=== PATIENT | male | born 1970 | race Hispanic/Latino ===

== ENCOUNTER → 2019-03-23 | Outpatient (CLI) | payer MEDICAID, OTHER ==
[~2019-03-23] MED LIST: CARA1TAB6 PO; CREO12CA PO; ENDO5TAB PO; ZOFR4TAB16 PO
[2019-03-23 10:16] LABS: BASO % 0.6 % (0.0-1.0); EOS # 0.2 10^3/uL (0.0-0.5); EOS % 2.6 % (0.0-3.0); HEMATOCRIT 41.5 % (42.0-52.0); LYMPH # 1.5 10^3/uL (1.5-5.0); LYMPH % 22.2 % (24.0-44.0); MEAN CORPUSCULAR HEMOGLOBIN 29.2 pg (27.0-33.0); MEAN CORPUSCULAR HGB CONC 33.7 g/dl (32.0-36.5); MEAN CORPUSCULAR VOLUME 86.6 fl (80.0-96.0); MONO # 0.6 10^3/uL (0.0-0.8); NEUTROPHILS # 4.5 10^3/uL (1.5-8.5); PLATELET COUNT, AUTOMATED 268 10^3/uL (150-450); RED BLOOD COUNT 4.79 10^6/uL (4.30-6.10); WHITE BLOOD COUNT 6.9 10^3/uL (4.0-10.0)
[2019-03-23 10:20] LABS: APPEARANCE, URINE CLEAR (CLEAR); BACTERIA, URINE AUTO NEGATIVE (NEGATIVE); BILIRUBIN, URINE AUTO NEGATIVE (NEGATIVE); BLOOD, URINE BLOOD NEGATIVE (NEGATIVE); COLOR, URINE YELLOW (YELLOW); GLUCOSE, URINE (UA) AUTO NEGATIVE (NEGATIVE); KETONE, URINE AUTO NEGATIVE (NEGATIVE); LEUKOCYTE ESTERASE, URINE AUTO NEGATIVE (NEGATIVE); MUCUS, URINE SMALL (NEGATIVE); NITRITE, URINE AUTO NEGATIVE (NEGATIVE); PROTEIN, URINE AUTO NEGATIVE (NEGATIVE); RBC, URINE AUTO 1 /HPF (0-3); SPECIFIC GRAVITY URINE AUTO 1.021 (1.002-1.035); SQUAMOUS EPITHELIAL CELL UR AU 0 /HPF (0-6); UROBILINOGEN, URINE AUTO 0.2 mg/dL (0.0-2.0); WBC, URINE AUTO 1 /HPF (0-3)
[2019-03-23 11:26] LABS: ALBUMIN 3.8 GM/DL (3.2-5.2); ALT/SGPT 20 U/L (12-78); BILIRUBIN,TOTAL 0.6 MG/DL (0.2-1.0); BLOOD UREA NITROGEN 12 MG/DL (7-18); CALCIUM LEVEL 8.9 MG/DL (8.5-10.1); CARBON DIOXIDE LEVEL 21 MEQ/L (21-32); CHLORIDE LEVEL 110 MEQ/L (98-107); CREATININE FOR GFR 1.02 MG/DL (0.70-1.30); GLOMERULAR FILTRATION RATE > 60.0 (>60); GLUCOSE, FASTING 92 MG/DL (70-100); SODIUM LEVEL 138 MEQ/L (136-145); TOTAL PROTEIN 7.4 GM/DL (6.4-8.2)
[2019-03-23 11:27] LABS: POTASSIUM SERUM 6.4 MEQ/L (3.5-5.1)
[2019-03-24 09:15] LABS: HEPATITIS B SURFACE ANTIGEN NEGATIVE (NEGATIVE)
[2019-03-24 09:43] LABS: HEPATITIS B CORE ANTIBODY IGM NEGATIVE (NEGATIVE)
[2019-03-24 09:45] LABS: HEPATITIS A ANTIBODY IGM NEGATIVE (NEGATIVE)
== END ==
LOC: M LAB 09:31
PROVIDERS: ATTEND Physician Assistant Medical
DX: Z02.2 Encounter for examination for admission to residential institution (principal)

== ENCOUNTER → 2019-03-24 | Outpatient (CLI) | payer OTHER, MEDICAID | LOC: M LAB 17:52 | PROVIDERS: ATTEND Physician Assistant Medical | DX: Z02.2 Encounter for examination for admission to residential institution (principal) ==

== ENCOUNTER 2019-03-28 12:45 | Emergency (ER) | payer OTHER, MEDICAID ==
[~2019-03-28] VITALS: Ht 165.1 cm; Wt 63.0 kg
[2019-03-28] MEDS ORDERED: CARA1TAB6 PO (12:59)
[2019-03-28] MEDS ORDERED: CREO12CA PO (12:59)
[2019-03-28] MEDS ORDERED: ENDO5TAB PO (12:59)
[2019-03-28] MEDS ORDERED: ZOFR4TAB16 PO (12:59)
[2019-03-28] MEDS ORDERED: MORPHINE 2 MG/ML 1ML SYRINGE (J2270) IV ONE (14:00)
[2019-03-28] MEDS ORDERED: ONDANSETRON 4MG/2ML VIAL (J2405) IV ONE (14:00)
[2019-03-28] MEDS ORDERED: ONDANSETRON 4 MG ORAL DISINTEGRATING TAB (Q0162 PER 1MG) PO ONE (14:30)
[2019-03-28] MEDS ORDERED: MORPHINE 2 MG/ML 1ML SYRINGE (J2270) IM ONE ×2 (14:30→16:15)
[2019-03-28 15:12] LABS: HEMATOCRIT 47.2 % (42.0-52.0); HEMOGLOBIN 15.1 g/dl (13.5-17.5); MEAN CORPUSCULAR HEMOGLOBIN 28.8 pg (27.0-33.0); MEAN CORPUSCULAR VOLUME 90.1 fl (80.0-96.0); PLATELET COUNT, AUTOMATED 269 10^3/uL (150-450); RED BLOOD COUNT 5.24 10^6/uL (4.30-6.10); WHITE BLOOD COUNT 11.6 10^3/uL (4.0-10.0)
[2019-03-28 15:39] LABS: ALBUMIN 4.3 GM/DL (3.2-5.2); ALT/SGPT 26 U/L (12-78); BILIRUBIN,TOTAL 0.4 MG/DL (0.2-1.0); BLOOD UREA NITROGEN 7 MG/DL (7-18); CALCIUM LEVEL 9.3 MG/DL (8.5-10.1); CARBON DIOXIDE LEVEL 26 MEQ/L (21-32); CHLORIDE LEVEL 107 MEQ/L (98-107); CREATININE FOR GFR 0.97 MG/DL (0.70-1.30); GLOMERULAR FILTRATION RATE > 60.0 (>60); GLUCOSE, FASTING 77 MG/DL (70-100); POTASSIUM SERUM 4.1 MEQ/L (3.5-5.1); SODIUM LEVEL 142 MEQ/L (136-145)
[2019-03-28 15:54] VITALS: BP 114/68
--- NOTE | 2019-03-28 18:50 | ED PDOC ---
Post-Departure Follow-Up I spoke with Dr. Chilango Valencia at 1415 from [facility]. He performed banks rgery on this patient Friday. I was advised to leave the plaster for the splint in place. Lightly remove the gauze to look at the 3 incision sites. All 3 sites were visualized. No signs on exam of infection such as redness, warmth, or drainage. Patient afebrile during visit. He has a follow up appointment scheduled for this Friday JORGE CARCAMO PA-C Mar 28, 2019 18:50
== END 2019-03-28 17:00 | disposition home or self-care (01) ==
LOC: M ED 12:45 → EDBD 12:45 → M ED 17:00
DX: G89.18 Other acute postprocedural pain (principal); M79.631 Pain in right forearm; F33.9 Major depressive disorder, recurrent, unspecified; F41.9 Anxiety disorder, unspecified; K27.9 Peptic ulcer, site unspecified, unspecified as acute or chronic, without hemorrhage or perforation; Z88.0 Allergy status to penicillin; Z88.8 Allergy status to other drugs, medicaments and biological substances; F17.210 Nicotine dependence, cigarettes, uncomplicated
CPT/HCPCS: 36415; 80053; 85027; 96372; 99284; J2270; Q0162

== ENCOUNTER 2019-03-30 23:18 | Emergency (ER) | payer MEDICAID, OTHER ==
[~2019-03-30] VITALS: Ht 165.1 cm; Wt 63.6 kg
[2019-03-31] MEDS ORDERED: MORPHINE 4 MG/ML 1ML VIAL/SYRINGE (J2270) IV ONE
[2019-03-31 00:23] LABS: BASO % 0.5 % (0.0-1.0); EOS # 0.2 10^3/uL (0.0-0.5); EOS % 2.7 % (0.0-3.0); HEMATOCRIT 42.3 % (42.0-52.0); HEMOGLOBIN 13.9 g/dl (13.5-17.5); LYMPH # 2.5 10^3/uL (1.5-5.0); LYMPH % 29.5 % (24.0-44.0); MEAN CORPUSCULAR HEMOGLOBIN 28.5 pg (27.0-33.0); MEAN CORPUSCULAR HGB CONC 32.9 g/dl (32.0-36.5); MEAN CORPUSCULAR VOLUME 86.7 fl (80.0-96.0); MONO # 0.5 10^3/uL (0.0-0.8); NEUTROPHILS # 5.1 10^3/uL (1.5-8.5); NEUTROPHILS % 60.6 % (36.0-66.0); PLATELET COUNT, AUTOMATED 311 10^3/uL (150-450); RED BLOOD COUNT 4.88 10^6/uL (4.30-6.10); WHITE BLOOD COUNT 8.5 10^3/uL (4.0-10.0)
[2019-03-31] MEDS ORDERED: MORPHINE 10 MG/ML 1ML VIAL (J2270) IM ONE (00:30)
[2019-03-31 00:44] LABS: BLOOD UREA NITROGEN 11 MG/DL (7-18); CALCIUM LEVEL 8.7 MG/DL (8.5-10.1); CARBON DIOXIDE LEVEL 28 MEQ/L (21-32); CHLORIDE LEVEL 108 MEQ/L (98-107); CREATININE FOR GFR 0.94 MG/DL (0.70-1.30); GLOMERULAR FILTRATION RATE > 60.0 (>60); GLUCOSE, FASTING 105 MG/DL (70-100); POTASSIUM SERUM 4.2 MEQ/L (3.5-5.1); SODIUM LEVEL 142 MEQ/L (136-145)
--- NOTE | 2019-03-31 01:21 | REPVR ---
PROCEDURE INFORMATION: Exam: US Duplex Right Upper Extremity Veins, Limited Exam date and time: 03/30/2019 12:56 AM Clinical history: 49 years old, male; Pain; Arn, upper and arm and hand; Right; Prior surgery; Surgery date: 3-7 days post-operative; Surgery type: Tendon repair; Additional info: R arm pain R/O dvt TECHNIQUE: Imaging protocol: Real-time Duplex ultrasound of the Right Upper Extremity with 2-D baldwin scale, color Doppler flow and spectral waveform analysis with image documentation. Limited exam focused on the right upper extremity veins. COMPARISON: No relevant prior studies available. FINDINGS: Right deep veins: Unremarkable. Axillary and brachial veins are patent throughout without thrombus. Normal Doppler waveforms. Normal compressibility and/or augmentation response. Visualized internal jugular and subclavian veins are patent. Right superficial veins: Unremarkable. Visualized cephalic and basilic veins are patent without thrombus. Soft tissues: Subcutaneous edema. IMPRESSION: No sonographic evidence of deep vein thrombosis. Electronically signed by: Aureliano Sanchez On 03/31/2019 01:21:05 AM
--- NOTE | 2019-03-31 01:26 | REPVR ---
PROCEDURE INFORMATION: Exam: XR Right Hand Exam date and time: 03/31/2019 12:39 AM Clinical history: 49 years old, male; Pain; Hand; Right; Prior surgery; Surgery date: 3-7 days post-operative; Additional info: Hand pain TECHNIQUE: Imaging protocol: XR Right hand. Views: 3 or more views. COMPARISON: No relevant prior studies available. 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 No radiographic evidence of acute fracture or dislocation. Alignment anatomic. Mild degenerative changes. No erosive or destructive changes. No lytic or blastic lesion. Soft tissues: Mild soft tissue swelling. IMPRESSION: Soft tissue swelling without acute osseous abnormality. Electronically signed by: Aureliano Sanchez On 03/31/2019 01:26:07 AM
--- NOTE | 2019-03-31 01:32 | REPVR ---
PROCEDURE INFORMATION: Exam: XR Right Forearm Exam date and time: 03/31/2019 12:39 AM Clinical history: 49 years old, male; Pain; Lower or forearm; Right; Prior surgery; Surgery date: 3-7 days post-operative; Additional info: Forearm pain TECHNIQUE: Imaging protocol: XR Right forearm. Views: 2 views. COMPARISON: No relevant prior studies available. FINDINGS: Bones/joints: No radiographic evidence of acute fracture or dislocation. Alignment is anatomic. Joint spaces preserved. No erosive or destructive changes. No lytic or blastic lesion. Soft tissues: Mild soft tissue swelling about the distal forearm and wrist. IMPRESSION: No acute osseous abnormality. Electronically signed by: Aureliano Sanchez On 03/31/2019 01:32:48 AM
[2019-03-31] MEDS ORDERED: PERCOCET 5MG/325MG TAB PO ONE (02:15)
[2019-03-31 02:27] VITALS: BP 136/78
== END 2019-03-31 02:50 | disposition home or self-care (01) ==
LOC: M ED 23:18
DX: G89.18 Other acute postprocedural pain (principal); K21.9 Gastro-esophageal reflux disease without esophagitis; F41.9 Anxiety disorder, unspecified; F32.9 Major depressive disorder, single episode, unspecified; K85.90 Acute pancreatitis without necrosis or infection, unspecified; Z90.49 Acquired absence of other specified parts of digestive tract; F17.210 Nicotine dependence, cigarettes, uncomplicated; Z88.0 Allergy status to penicillin; Z88.8 Allergy status to other drugs, medicaments and biological substances; Z79.899 Other long term (current) drug therapy
CPT/HCPCS: 36415; 73090; 73130; 80048; 85025; 93971; 96372; 99284; J2270

== ENCOUNTER → 2019-06-29 | Outpatient (RCR) | payer OTHER | END | disposition home or self-care (01) | LOC: M OT 06-01 10:49 | DX: Z47.89 Encounter for other orthopedic aftercare (principal) ==

== ENCOUNTER → 2019-09-28 | Outpatient (CLI) | payer OTHER ==
--- NOTE | 2019-09-28 14:26 | REP ---
DIGITAL BILATERAL DIAGNOSTIC MAMMOGRAPHY WITH CAD, 3D TOMOGRAPHY, AND FOCUSED BILATERAL BREAST SONOGRAPHY: HISTORY: Gynecomastia. Bilateral breast lumps. Very painful. Left greater than right. MAMMOGRAPHIC FINDINGS: Craniocaudal and mediolateral oblique views of each breast were obtained. These demonstrate a gynecomastia pattern with moderate fibroglandular tissue density dispersed in both breasts, left more advanced than right. There is no evidence of focal breast mass, architectural distortion, microcalcification, or worrisome skin change. SONOGRAPHIC FINDINGS: Focused bilateral subareolar breast sonography show heterogeneous fibroglandular background echotexture consistent with gynecomastia bilaterally. No mass is seen. No cyst is observed by ultrasound. IMPRESSION: BIRADS 2: BI-RADS/ACR category 2 mammogram. Benign Findings. BIRADS category 2 benign findings. Gynecomastia pattern seen sonographically and mammographically, left more prominently than right. Clinical followup is advised. This mammogram was interpreted with the aid of an FDA-approved computer-aided detection system. The patient states she had a clinical breast exam in August 2019.
== END ==
LOC: M WHC 12:51
PROVIDERS: ATTEND Internal Medicine Cardiovascular Disease
DX: Z12.31 Encounter for screening mammogram for malignant neoplasm of breast (principal); N62 Hypertrophy of breast